=== PATIENT | male | born 1945 | race Caucasian/White ===

== ENCOUNTER 2021-01-26 19:31 | Emergency (ER) | payer OTHER, MEDICARE ==
[~2021-01-26] VITALS: Ht 177.8 cm; Wt 95.2 kg
[~2021-01-26 19:31] MED LIST: METPRE4DP PO; Norco 5-325 Ta1 EACH PO; SIMV5
[2021-01-26 20:42] LABS: BASOPHILS ABSOLUTE AUTO 0.09 K/mm3 (0.00-0.23); BASOPHILS PERCENT AUTO 1 % (0-2); EOSINOPHILS ABSOLUTE AUTO 0.47 K/mm3 (0.00-0.68); EOSINOPHILS PERCENT AUTO 6 % (0-6); Hematocrit 43.8 % (37.0-53.0); Hemoglobin 14.5 g/dL (13.5-17.5); IMMATURE GRAN ABSOLUTE AUTO 0.03 K/mm3 (0.00-0.10); IMMATURE GRAN PERCENT AUTO 0 % (0-1); LYMPHOCYTES ABSOLUTE AUTO 2.04 K/mm3 (0.84-5.20); LYMPHOCYTES PERCENT AUTO 24 % (21-46); MONOCYTES ABSOLUTE AUTO 0.95 K/mm3 (0.16-1.47); MONOCYTES PERCENT AUTO 11 % (4-13); Mean Corpuscular HGB 30.3 pg (26.0-34.0); Mean Corpuscular HGB Conc 33.1 g/dL (31.5-36.5); Mean Corpuscular Volume 91 fL (80-100); NEUTROPHILS ABSOLUTE AUTO 4.82 K/mm3 (1.96-9.15); NEUTROPHILS PERCENT AUTO 57 % (41-73); Platelet Count 251 K/mm3 (150-400); RDW Coefficient Variation 12.8 % (11.7-14.2); RDW Standard Deviation 42.5 fL (35.1-46.3); Red Blood Cell Count 4.79 M/mm3 (4.30-5.90)
[2021-01-26 21:02] LABS: Alanine Aminotransfer (ALT/SGP 22 U/L (12-78); Albumin, Blood 3.4 g/dL (3.4-5.0); Albumin/Globulin Ratio 0.8 (0.8-1.8); Alk Phos 74 U/L (50-136); Anion Gap 5 mmol/L (6-16); Aspartate Aminotrans (AST/SGOT 15 U/L (12-37); Bilirubin, Total 0.5 mg/dL (0.1-1.0); Blood Urea Nitrogen 19 mg/dL (8-24); Bun/Creatinine Ratio 16.4 (12.0-20.0); CO2, Blood 28 mmol/L (21-32); Calcium, Blood 9.5 mg/dL (8.5-10.1); Chloride, Blood 107 mmol/L (98-108); Creatinine, Blood 1.16 mg/dL (0.60-1.20); Globulin, Blood 4.2 g/dL (2.2-4.0); Glomerular Filtration Rate >60 (60-); Glucose, Blood 110 mg/dL (70-99); Sodium, Blood 140 mmol/L (136-145); Total Protein, Blood 7.6 g/dL (6.4-8.2); Troponin I <0.015 ng/mL (0.000-0.040)
[2021-01-26] MEDS ORDERED: Prinivil10 MG PO (22:56)
[2021-01-26] MEDS ORDERED: DONEPEZIL HCL10 MG PO (22:57)
[2021-01-26] MEDS ORDERED: CEPH500 PO (22:57)
[2021-01-26] MEDS ORDERED: MEMANTINE PO (22:58)
[2021-01-26] MEDS ORDERED: CYAN500 PO (22:59)
[2021-01-26] MEDS ORDERED: FLAX PO (23:00)
[2021-01-26 23:52] LABS: Source, Urine Clean Catch
[2021-01-26 23:53] LABS: Bilirubin, Urine Neg (Neg); Blood, Urine 1+ (Neg); Glucose Qualitative, Urine Neg (Neg); Ketones, Urine Neg (Neg); Leukocyte Esterase, Urine Neg (Neg); Nitrite, Urine Neg (Neg); Protein, Urine Neg (Neg); Specific Gravity, Urine 1.025 (1.003-1.022); Urobilinogen, Urine NORM (Normal)
[2021-01-27 00:03] LABS: Appearance, Urine Clear (Clear); Color, Urine Yellow (P-Yellow)
[2021-01-27 00:04] LABS: Bacteria Not Seen /hpf; Mucus Light (0-Heavy); Red Blood Cells, Urine 0-2 /hpf (0-2); Squamous Epithelial Cells Not Seen /hpf (Few); White Blood Cells, Urine Not Seen /hpf (0-5)
== END 2021-01-27 00:12 | disposition home or self-care (01) ==
LOC: ER 19:31
PROVIDERS: Emergency Medicine; Physician Assistant
DX: K63.89 Other specified diseases of intestine (principal); Z79.899 Other long term (current) drug therapy
CPT/HCPCS: 36415; 71045; 74176; 80053; 81001; 83690; 84484; 85025; 93005; 93010; 96374; 99284-25; J1885

== ENCOUNTER → 2021-03-11 | Outpatient (CLI) | payer MEDICARE ==
[~2021-03-11] MED LIST changes: +CEPH500 PO; +CYAN500 PO; +DONEPEZIL HCL10 MG PO; +FLAX PO; +MEMANTINE PO; +Prinivil10 MG PO
[2021-03-11 20:18] LABS: Free Thyroxine 0.99 ng/dL (0.70-1.60); Thyroid Stimulating Hormone 1.53 uIU/mL (0.360-4.800)
== END | disposition home or self-care (01) ==
LOC: LAB 15:35 → LAB SHORT 15:35
PROVIDERS: Hospitalist
DX: R41.3 Other amnesia (principal)
CPT/HCPCS: 84439; 84443; 85651; 86592

== ENCOUNTER → 2022-12-18 | Outpatient (CLI) | payer MEDICARE ==
[2022-12-18 18:46] LABS: BASOPHILS ABSOLUTE AUTO 0.09 K/mm3 (0.00-0.23); BASOPHILS PERCENT AUTO 1 % (0-2); EOSINOPHILS ABSOLUTE AUTO 0.37 K/mm3 (0.00-0.68); EOSINOPHILS PERCENT AUTO 4 % (0-6); Hematocrit 42.3 % (37.0-53.0); Hemoglobin 14.3 g/dL (13.5-17.5); IMMATURE GRAN ABSOLUTE AUTO 0.03 K/mm3 (0.00-0.10); IMMATURE GRAN PERCENT AUTO 0 % (0-1); LYMPHOCYTES ABSOLUTE AUTO 1.78 K/mm3 (0.84-5.20); LYMPHOCYTES PERCENT AUTO 20 % (21-46); MONOCYTES PERCENT AUTO 9 % (4-13); Mean Corpuscular HGB 30.6 pg (26.0-34.0); Mean Corpuscular HGB Conc 33.8 g/dL (31.5-36.5); Mean Corpuscular Volume 90 fL (80-100); Mean Platelet Volume 11.5 fL (9.1-12.4); NEUTROPHILS ABSOLUTE AUTO 5.84 K/mm3 (1.96-9.15); NEUTROPHILS PERCENT AUTO 66 % (41-73); Platelet Count 261 K/mm3 (150-400); RDW Coefficient Variation 13.3 % (11.7-14.2); RDW Standard Deviation 43.9 fL (35.1-46.3); Red Blood Cell Count 4.68 M/mm3 (4.30-5.90); White Blood Cell Count 8.91 K/mm3 (4.00-11.30)
[2022-12-19 10:03] LABS: Alanine Aminotransfer (ALT/SGP 34 U/L (12-78); Albumin, Blood 3.4 g/dL (3.4-5.0); Alk Phos 66 U/L (50-136); Anion Gap 5 mmol/L (6-16); Aspartate Aminotrans (AST/SGOT 21 U/L (12-37); Bilirubin, Total 0.6 mg/dL (0.1-1.0); Blood Urea Nitrogen 17 mg/dL (8-24); Bun/Creatinine Ratio 14.4 (12.0-20.0); CHOL/HDL RATIO 3.2; CO2, Blood 25 mmol/L (21-32); Calcium, Blood 9.1 mg/dL (8.5-10.1); Chloride, Blood 112 mmol/L (98-108); Cholesterol 210 mg/dL (50-200); Creatinine, Blood 1.18 mg/dL (0.60-1.20); Globulin, Blood 3.4 g/dL (2.2-4.0); Glomerular Filtration Rate 64 (60-); Glucose, Blood 114 mg/dL (70-99); HDL Cholesterol 65 mg/dL (>39); Low Density Lipoprotein Chol 130 mg/dL (0-110); Potassium, Blood 4.2 mmol/L (3.5-5.5); Sodium, Blood 142 mmol/L (136-145); Total Protein, Blood 6.8 g/dL (6.4-8.2); Triglycerides 77 mg/dL (30-160); Very Low Density Lipoprot Chol 15 mg/dL (6-32)
== END | disposition home or self-care (01) ==
LOC: LAB 17:37 → LAB SHORT 17:37
PROVIDERS: Hospitalist
DX: I10 Essential (primary) hypertension (principal); E78.5 Hyperlipidemia, unspecified
CPT/HCPCS: 80053; 80061; 84443; 85025

== ENCOUNTER 2024-06-17 14:36 | Emergency (ER) | payer OTHER ==
[~2024-06-17] VITALS: Ht 177.8 cm; Wt 90.7 kg
[2024-06-17] MEDS ORDERED: Amlodipine Bes2.5 MG (15:30)
[2024-06-17 15:36] LABS: BASOPHILS ABSOLUTE AUTO 0.09 K/mm3 (0.00-0.23); BASOPHILS PERCENT AUTO 1 % (0-2); EOSINOPHILS PERCENT AUTO 4 % (0-6); Hematocrit 40.1 % (37.0-53.0); Hemoglobin 13.1 g/dL (13.5-17.5); IMMATURE GRAN ABSOLUTE AUTO 0.03 K/mm3 (0.00-0.10); IMMATURE GRAN PERCENT AUTO 0 % (0-1); LYMPHOCYTES ABSOLUTE AUTO 1.52 K/mm3 (0.84-5.20); LYMPHOCYTES PERCENT AUTO 20 % (21-46); MONOCYTES ABSOLUTE AUTO 0.63 K/mm3 (0.16-1.47); MONOCYTES PERCENT AUTO 8 % (4-13); Mean Corpuscular HGB 30.6 pg (26.0-34.0); Mean Corpuscular HGB Conc 32.7 g/dL (31.5-36.5); Mean Corpuscular Volume 94 fL (80-100); Mean Platelet Volume 11.2 fL (9.1-12.4); NEUTROPHILS ABSOLUTE AUTO 4.97 K/mm3 (1.96-9.15); NEUTROPHILS PERCENT AUTO 66 % (41-73); Platelet Count 295 K/mm3 (150-400); RDW Coefficient Variation 13.4 % (11.7-14.2); RDW Standard Deviation 45.2 fL (35.1-46.3); Red Blood Cell Count 4.28 M/mm3 (4.30-5.90); White Blood Cell Count 7.54 K/mm3 (4.00-11.30)
[2024-06-17 16:59] LABS: Albumin, Blood 2.7 g/dL (3.4-5.0); Albumin/Globulin Ratio 0.6 (0.8-1.8); Bilirubin, Total 0.8 mg/dL (0.1-1.0); Bun/Creatinine Ratio 17.8 (12.0-20.0); Calcium, Blood 9.1 mg/dL (8.5-10.1); Creatinine, Blood 1.07 mg/dL (0.60-1.20); Globulin, Blood 4.5 g/dL (2.2-4.0); Magnesium, Blood 2.1 mg/dL (1.6-2.4); Potassium, Blood 4.6 mmol/L (3.5-5.5); Total Protein, Blood 7.2 g/dL (6.4-8.2)
[2024-06-17] MEDS ORDERED: IRBE75 (18:06)
[2024-06-17] MEDS ORDERED: FURO20 (18:06)
[2024-06-17 19:04] LABS: Source, Urine Clean Catch
[2024-06-17 19:10] LABS: Appearance, Urine Clear (Clear); Bilirubin, Urine Neg (Neg); Blood, Urine Neg (Neg); Color, Urine Yellow (P-Yellow); Glucose Qualitative, Urine Neg (Neg); Ketones, Urine Neg (Neg); Leukocyte Esterase, Urine 1+ (Neg); Nitrite, Urine Neg (Neg); Protein, Urine Neg (Neg); Specific Gravity, Urine 1.025 (1.003-1.022); Urobilinogen, Urine NORM (Normal)
[2024-06-17 19:19] LABS: Bacteria Few /hpf; Red Blood Cells, Urine Not Seen /hpf (0-2); Squamous Epithelial Cells Not Seen /hpf (Few)
[2024-06-17 20:15] VITALS: BP 123/60
== END 2024-06-17 20:27 | disposition home or self-care (01) ==
LOC: ER 14:36
PROVIDERS: Student in an Organized Health Care Education/Training Program
DX: R55 Syncope and collapse (principal); Z79.899 Other long term (current) drug therapy
CPT/HCPCS: 70450; 71046; 80053; 81001; 83735; 83880; 84484; 85025; 87086; 93005; 93010; 99285-25

== ENCOUNTER 2024-10-07 16:31 | Observation (INO) | payer OTHER, MEDICARE ==
[~2024-10-07] VITALS: Ht 177.8 cm; Wt 101.2 kg
[~2024-10-07 16:31] MED LIST changes: +Amlodipine Bes2.5 MG; +Enoxaparin 40 MG/0.4 ML SYR SC SCH; +FURO20; +IRBE75
[2024-10-07 19:32] LABS: BASOPHILS ABSOLUTE AUTO 0.09 K/mm3 (0.00-0.23); BASOPHILS PERCENT AUTO 1 % (0-2); EOSINOPHILS ABSOLUTE AUTO 0.55 K/mm3 (0.00-0.68); EOSINOPHILS PERCENT AUTO 6 % (0-6); Hematocrit 43.6 % (37.0-53.0); Hemoglobin 13.8 g/dL (13.5-17.5); IMMATURE GRAN ABSOLUTE AUTO 0.05 K/mm3 (0.00-0.10); IMMATURE GRAN PERCENT AUTO 1 % (0-1); LYMPHOCYTES ABSOLUTE AUTO 1.68 K/mm3 (0.84-5.20); LYMPHOCYTES PERCENT AUTO 17 % (21-46); MONOCYTES ABSOLUTE AUTO 0.74 K/mm3 (0.16-1.47); MONOCYTES PERCENT AUTO 8 % (4-13); Mean Corpuscular HGB 30.8 pg (26.0-34.0); Mean Corpuscular HGB Conc 31.7 g/dL (31.5-36.5); Mean Corpuscular Volume 97 fL (80-100); Mean Platelet Volume 11.6 fL (9.1-12.4); NEUTROPHILS ABSOLUTE AUTO 6.73 K/mm3 (1.96-9.15); NEUTROPHILS PERCENT AUTO 68 % (41-73); Platelet Count 248 K/mm3 (150-400); RDW Coefficient Variation 13.3 % (11.7-14.2); RDW Standard Deviation 47.8 fL (35.1-46.3); Red Blood Cell Count 4.48 M/mm3 (4.30-5.90); White Blood Cell Count 9.84 K/mm3 (4.00-11.30)
[2024-10-07 20:53] LABS: Albumin, Blood 2.8 g/dL (3.4-5.0); Albumin/Globulin Ratio 0.7 (0.8-1.8); Bilirubin, Total 0.4 mg/dL (0.1-1.0); Bun/Creatinine Ratio 18.5 (12.0-20.0); Calcium, Blood 9.3 mg/dL (8.5-10.1); Creatinine, Blood 1.35 mg/dL (0.60-1.20); Globulin, Blood 4.1 g/dL (2.2-4.0); Potassium, Blood 4.2 mmol/L (3.5-5.5); Total Protein, Blood 6.9 g/dL (6.4-8.2)
[2024-10-07] MEDS ORDERED: NS 1,000 ML IV SCH (21:00)
[2024-10-07] MEDS ORDERED: Ondansetron HCl 2 MG / ML 2ML Vial IV PRN (23:40)
[2024-10-07] MEDS ORDERED: FLU VACC TS2024-25(6MOS UP)/PF 45 MCG/0.5 ML SYRINGE IM ONE (23:40)
[2024-10-07] MEDS ORDERED: NS 1,000 ML IV ONE (23:45)
[2024-10-08] VITALS (7 sets, daily range): BP systolic 137–166; BP diastolic 64–102
[2024-10-08 04:53] LABS: BASOPHILS ABSOLUTE AUTO 0.09 K/mm3 (0.00-0.23); BASOPHILS PERCENT AUTO 1 % (0-2); EOSINOPHILS ABSOLUTE AUTO 0.72 K/mm3 (0.00-0.68); EOSINOPHILS PERCENT AUTO 7 % (0-6); Hematocrit 37.8 % (37.0-53.0); Hemoglobin 12.2 g/dL (13.5-17.5); IMMATURE GRAN ABSOLUTE AUTO 0.03 K/mm3 (0.00-0.10); IMMATURE GRAN PERCENT AUTO 0 % (0-1); LYMPHOCYTES ABSOLUTE AUTO 2.36 K/mm3 (0.84-5.20); LYMPHOCYTES PERCENT AUTO 24 % (21-46); MONOCYTES ABSOLUTE AUTO 1.08 K/mm3 (0.16-1.47); MONOCYTES PERCENT AUTO 11 % (4-13); Mean Corpuscular HGB 30.6 pg (26.0-34.0); Mean Corpuscular HGB Conc 32.3 g/dL (31.5-36.5); Mean Corpuscular Volume 95 fL (80-100); Mean Platelet Volume 11.4 fL (9.1-12.4); NEUTROPHILS ABSOLUTE AUTO 5.52 K/mm3 (1.96-9.15); NEUTROPHILS PERCENT AUTO 56 % (41-73); Platelet Count 220 K/mm3 (150-400); RDW Coefficient Variation 13.2 % (11.7-14.2); RDW Standard Deviation 46.5 fL (35.1-46.3); Red Blood Cell Count 3.99 M/mm3 (4.30-5.90)
[2024-10-08 05:22] LABS: Albumin, Blood 2.6 g/dL (3.4-5.0); Albumin/Globulin Ratio 0.7 (0.8-1.8); Bilirubin, Total 0.4 mg/dL (0.1-1.0); Bun/Creatinine Ratio 23.1 (12.0-20.0); Creatinine, Blood 1.21 mg/dL (0.60-1.20); Globulin, Blood 3.8 g/dL (2.2-4.0); Potassium, Blood 3.9 mmol/L (3.5-5.5); Total Protein, Blood 6.4 g/dL (6.4-8.2)
[2024-10-08] MEDS ORDERED: AmLODIPine Besylate 5 MG Tab PO SCH (08:30)
[2024-10-08] MEDS ORDERED: Losartan Potassium 50 MG Tab PO SCH (10:00)
[2024-10-09 03:50] VITALS: BP 160/69
[2024-10-09 04:29] LABS: BASOPHILS ABSOLUTE AUTO 0.12 K/mm3 (0.00-0.23); BASOPHILS PERCENT AUTO 1 % (0-2); EOSINOPHILS ABSOLUTE AUTO 0.94 K/mm3 (0.00-0.68); EOSINOPHILS PERCENT AUTO 11 % (0-6); Hematocrit 36.4 % (37.0-53.0); Hemoglobin 11.9 g/dL (13.5-17.5); IMMATURE GRAN ABSOLUTE AUTO 0.03 K/mm3 (0.00-0.10); IMMATURE GRAN PERCENT AUTO 0 % (0-1); LYMPHOCYTES ABSOLUTE AUTO 2.32 K/mm3 (0.84-5.20); LYMPHOCYTES PERCENT AUTO 27 % (21-46); MONOCYTES ABSOLUTE AUTO 0.93 K/mm3 (0.16-1.47); MONOCYTES PERCENT AUTO 11 % (4-13); Mean Corpuscular HGB 31.1 pg (26.0-34.0); Mean Corpuscular HGB Conc 32.7 g/dL (31.5-36.5); Mean Corpuscular Volume 95 fL (80-100); Mean Platelet Volume 11.3 fL (9.1-12.4); NEUTROPHILS ABSOLUTE AUTO 4.35 K/mm3 (1.96-9.15); NEUTROPHILS PERCENT AUTO 50 % (41-73); Platelet Count 220 K/mm3 (150-400); RDW Coefficient Variation 13.2 % (11.7-14.2); RDW Standard Deviation 46.1 fL (35.1-46.3); Red Blood Cell Count 3.83 M/mm3 (4.30-5.90); White Blood Cell Count 8.69 K/mm3 (4.00-11.30)
[2024-10-09 05:09] LABS: Albumin, Blood 2.7 g/dL (3.4-5.0); Albumin/Globulin Ratio 0.8 (0.8-1.8); Bilirubin, Total 0.7 mg/dL (0.1-1.0); Bun/Creatinine Ratio 16.3 (12.0-20.0); Calcium, Blood 8.9 mg/dL (8.5-10.1); Creatinine, Blood 1.23 mg/dL (0.60-1.20); Globulin, Blood 3.6 g/dL (2.2-4.0); Total Protein, Blood 6.3 g/dL (6.4-8.2)
[2024-10-09 07:33] VITALS: BP 173/91
[2024-10-09] MEDS ORDERED: Lactated Ringer's 1,000 ML IV ONE (10:00)
[2024-10-09 12:25] VITALS: BP 142/76
[2024-10-09 19:35] VITALS: BP 132/63
[2024-10-09] MEDS ORDERED: Miconazole Nitrate 2% 85 GM PWD TOP SCH (21:00)
[2024-10-10 04:45] VITALS: BP 177/93
[2024-10-10 07:52] VITALS: BP 179/90
[2024-10-10 07:53] VITALS: BP 165/92
[2024-10-10] MEDS ORDERED: IRBE150 PO (13:33)
[2024-10-10 15:12] VITALS: BP 158/80
[2024-10-10 19:37] VITALS: BP 134/68
[2024-10-11 04:54] VITALS: BP 166/85
[2024-10-11 07:06] VITALS: BP 164/96
== END 2024-10-11 14:38 ==
LOC: ER 16:31 → SURS 16:32 → ERHOLD 16:32 → SURS 23:38
PROVIDERS: Family Medicine; Student in an Organized Health Care Education/Training Program; ADMIT Internal Medicine
DX: R55 Syncope and collapse (principal); D64.9 Anemia, unspecified; G20.A1 Parkinson's disease without dyskinesia, without mention of fluctuations; F02.80 Dementia in other diseases classified elsewhere, unspecified severity, without behavioral disturbance, psychotic disturbance, mood disturbance, and anxiety; F01.50 Vascular dementia, unspecified severity, without behavioral disturbance, psychotic disturbance, mood disturbance, and anxiety; E88.09 Other disorders of plasma-protein metabolism, not elsewhere classified; N17.9 Acute kidney failure, unspecified; N18.2 Chronic kidney disease, stage 2 (mild); Z79.899 Other long term (current) drug therapy
CPT/HCPCS: 36415; 80053; 83880; 84484; 85025; 93005; 93010; 93246; 93306; 96360-59; 96372; 96372-59; 97110; 97163; 97530; 99285-25; A9270; G0378; J1650; J7030; J7120

== ENCOUNTER 2024-12-18 12:44 | Emergency (ER) | payer OTHER, MEDICARE ==
[~2024-12-18] VITALS: Ht 177.8 cm; Wt 104.3 kg
[~2024-12-18 12:44] MED LIST changes: -Enoxaparin 40 MG/0.4 ML SYR SC SCH; +IRBE150 PO
[2024-12-18] MEDS ORDERED: SERT50 (14:19)
[2024-12-18 14:41] LABS: BASOPHILS PERCENT AUTO 1 % (0-2); EOSINOPHILS ABSOLUTE AUTO 0.27 K/mm3 (0.00-0.68); EOSINOPHILS PERCENT AUTO 4 % (0-6); Hematocrit 43.7 % (37.0-53.0); Hemoglobin 14.2 g/dL (13.5-17.5); IMMATURE GRAN ABSOLUTE AUTO 0.03 K/mm3 (0.00-0.10); IMMATURE GRAN PERCENT AUTO 0 % (0-1); LYMPHOCYTES ABSOLUTE AUTO 1.12 K/mm3 (0.84-5.20); LYMPHOCYTES PERCENT AUTO 15 % (21-46); MONOCYTES ABSOLUTE AUTO 0.62 K/mm3 (0.16-1.47); MONOCYTES PERCENT AUTO 8 % (4-13); Mean Corpuscular HGB 30.7 pg (26.0-34.0); Mean Corpuscular HGB Conc 32.5 g/dL (31.5-36.5); Mean Corpuscular Volume 94 fL (80-100); Mean Platelet Volume 11.4 fL (9.1-12.4); NEUTROPHILS ABSOLUTE AUTO 5.27 K/mm3 (1.96-9.15); NEUTROPHILS PERCENT AUTO 71 % (41-73); Platelet Count 202 K/mm3 (150-400); RDW Coefficient Variation 13.1 % (11.7-14.2); RDW Standard Deviation 44.7 fL (35.1-46.3); Red Blood Cell Count 4.63 M/mm3 (4.30-5.90); White Blood Cell Count 7.41 K/mm3 (4.00-11.30)
[2024-12-18 15:18] LABS: Albumin, Blood 3.4 g/dL (3.4-5.0); Albumin/Globulin Ratio 0.9 (0.8-1.8); Bilirubin, Total 0.8 mg/dL (0.1-1.0); Bun/Creatinine Ratio 16.4 (12.0-20.0); Calcium, Blood 8.9 mg/dL (8.5-10.1); Creatinine, Blood 1.28 mg/dL (0.60-1.20); Globulin, Blood 3.7 g/dL (2.2-4.0); Potassium, Blood 4.2 mmol/L (3.5-5.5); Total Protein, Blood 7.1 g/dL (6.4-8.2)
[2024-12-18 16:15] VITALS: BP 118/66
== END 2024-12-18 16:31 | disposition home or self-care (01) ==
LOC: ER 12:44
PROVIDERS: Emergency Medicine
DX: R55 Syncope and collapse (principal); N18.9 Chronic kidney disease, unspecified; Z87.898 Personal history of other specified conditions; F01.50 Vascular dementia, unspecified severity, without behavioral disturbance, psychotic disturbance, mood disturbance, and anxiety; Z79.899 Other long term (current) drug therapy; Z79.811 Long term (current) use of aromatase inhibitors
CPT/HCPCS: 71045; 80053; 84484; 85025; 93005; 93010; 99284-25

== ENCOUNTER 2025-09-20 18:58 | Inpatient (IN) | payer OTHER, MEDICARE ==
[~2025-09-20] VITALS: Ht 177.8 cm; Wt 94.6 kg
[~2025-09-20 18:58] MED LIST changes: +SERT50
[2025-09-20] MEDS ORDERED: Ondansetron 4 MG SoluTab SL ONE (21:25)
[2025-09-20] MEDS ORDERED: HYDROcodone 5-APAP 325 TAB PO ONE (22:30)
[2025-09-20 23:15] LABS: BASOPHILS ABSOLUTE AUTO 0.07 K/mm3 (0.00-0.23); BASOPHILS PERCENT AUTO 0 % (0-2); EOSINOPHILS ABSOLUTE AUTO 0.00 K/mm3 (0.00-0.68); EOSINOPHILS PERCENT AUTO 0 % (0-6); Hematocrit 43.4 % (37.0-53.0); Hemoglobin 13.7 g/dL (13.5-17.5); IMMATURE GRAN ABSOLUTE AUTO 0.05 K/mm3 (0.00-0.10); IMMATURE GRAN PERCENT AUTO 0 % (0-1); LYMPHOCYTES ABSOLUTE AUTO 0.36 K/mm3 (0.84-5.20); LYMPHOCYTES PERCENT AUTO 2 % (21-46); MONOCYTES ABSOLUTE AUTO 0.34 K/mm3 (0.16-1.47); MONOCYTES PERCENT AUTO 2 % (4-13); Mean Corpuscular HGB Conc 31.6 g/dL (31.5-36.5); Mean Corpuscular Volume 94 fL (80-100); NEUTROPHILS ABSOLUTE AUTO 17.47 K/mm3 (1.96-9.15); NEUTROPHILS PERCENT AUTO 95 % (41-73); NRBC ABSOLUTE 0.00 K/mm3 (0.00-0.02); NRBC Auto 0.0 /100 WBC (0.0-0.2); Platelet Count 231 K/mm3 (150-400); RDW Coefficient Variation 13.5 % (11.7-14.2); RDW Standard Deviation 46.5 fL (35.1-46.3)
[2025-09-20 23:34] LABS: Alanine Aminotransfer (ALT/SGP 18.0 U/L (12-78); Albumin, Blood 2.9 g/dL (3.4-5.0); Albumin/Globulin Ratio 0.7 (0.8-1.8); Anion Gap 11.0 mmol/L (3-11); Aspartate Aminotrans (AST/SGOT 16.0 U/L (12-37); Bilirubin, Total 0.7 mg/dL (0.1-1.0); Blood Urea Nitrogen 25.0 mg/dL (8-24); CO2, Blood 24.0 mmol/L (21-32); Calcium, Blood 9.0 mg/dL (8.5-10.1); Chloride, Blood 111.0 mmol/L (98-108); Creatinine, Blood 1.26 mg/dL (0.60-1.20); Globulin, Blood 3.9 g/dL (2.2-4.0); Glucose, Blood 109.0 mg/dL (70-99); Potassium, Blood 4.0 mmol/L (3.5-5.5); Sodium, Blood 142.0 mmol/L (136-145); Total Protein, Blood 6.8 g/dL (6.4-8.2)
[2025-09-21] MEDS ORDERED: NS 1,000 ML IV SCH ×2 (02:25→02:50)
[2025-09-21] MEDS ORDERED: CefTRIAXone Sodium 1,000 MG in NS 100 ML IV ONE ×2 (02:45→08:15)
[2025-09-21] MEDS ORDERED: FLU VACC TS2025(65UP)/MF59C/PF 45 MCG/0.5 ML SYRINGE IM SCH (02:50)
[2025-09-21] MEDS ORDERED: Ondansetron HCl 2 MG / ML 2ML Vial IV PRN (02:50)
[2025-09-21 03:36] LABS: Influenza A, PCR NEGATIVE (NEGATIVE); Influenza B, PCR NEGATIVE (NEGATIVE); Resp Syncytial Virus, PCR NEGATIVE (NEGATIVE); SARS-Cov-2 (COVID-19) PCR, MMC NEGATIVE (NEGATIVE)
[2025-09-21 04:27] VITALS: BP 95/54
--- NOTE | 2025-09-21 05:30 | NUR ---
ADMIT FOR 09/21 410 AND SHIFT SUMMARY REPORT WAS RECEIVED FROM THE ER. PT WAS BROUGHT DOWN ON THE GURNEY WITH HIS AND TRANSFERRED OVER TO THE BED. PT ALERT WITH CONFUSION TRIES TO ANSWER QUESTIIONS TO HIS NAME AND SPOUSES NAME BUT VERY HARD TO UNDERSTAND. HE HAS A COCCYX WOUND, DRESSING APPLIED TO AREA AND BILAT HEELS ARE RED DRESSINGS AND BOOTIES APPLIED. HE HAS A PALLIATIVE CARE CONSULT. REMAINS ON NS AT 100. HE HAS A HX OF DEMENTIA AND PTS STATED THAT THIS IS HIS BASELINE X 2 MONTHS. HES UNABLE TO WALK HAS A CAREGIVER AT HOME WHO GETS HIM UP WITH A LIFT TO A W/C. SHE STATED THAT HES A FEEDER MOST OF THE TIME. HIS LACTIC WAS 2.6 AND WAS CALLED TO MD. BED IN LOW POSITION CALL LIGHT IN REACH
[2025-09-21 05:46] LABS: Source, Urine Foley catheter
[2025-09-21 05:52] LABS: Bilirubin, Urine Neg (Neg); Color, Urine Yellow (P-Yellow); Glucose Qualitative, Urine Neg (Neg); Ketones, Urine Neg (Neg); Leukocyte Esterase, Urine 3+ (Neg); Protein, Urine 2+ (Neg); Specific Gravity, Urine 1.020 (1.003-1.022); Urobilinogen, Urine 1+ (Normal)
[2025-09-21 06:10] LABS: White Blood Cells, Urine 25-50 /hpf (0-5)
[2025-09-21 06:59] LABS: Alanine Aminotransfer (ALT/SGP 16.0 U/L (12-78); Albumin, Blood 2.2 g/dL (3.4-5.0); Albumin/Globulin Ratio 0.6 (0.8-1.8); Anion Gap 11.0 mmol/L (3-11); Aspartate Aminotrans (AST/SGOT 17.0 U/L (12-37); Bilirubin, Total 0.6 mg/dL (0.1-1.0); Blood Urea Nitrogen 27.0 mg/dL (8-24); CO2, Blood 21.0 mmol/L (21-32); Calcium, Blood 8.4 mg/dL (8.5-10.1); Chloride, Blood 113.0 mmol/L (98-108); Creatinine, Blood 1.57 mg/dL (0.60-1.20); Globulin, Blood 3.5 g/dL (2.2-4.0); Glucose, Blood 119.0 mg/dL (70-99); Potassium, Blood 4.8 mmol/L (3.5-5.5); Sodium, Blood 140.0 mmol/L (136-145); Total Protein, Blood 5.7 g/dL (6.4-8.2)
[2025-09-21 07:45] VITALS: BP 117/54
[2025-09-21 08:03] LABS: BASOPHILS ABSOLUTE AUTO 0.11 K/mm3 (0.00-0.23); BASOPHILS PERCENT AUTO 0 % (0-2); EOSINOPHILS ABSOLUTE AUTO 0.00 K/mm3 (0.00-0.68); EOSINOPHILS PERCENT AUTO 0 % (0-6); Hematocrit 39.4 % (37.0-53.0); Hemoglobin 12.7 g/dL (13.5-17.5); IMMATURE GRAN ABSOLUTE AUTO 0.33 K/mm3 (0.00-0.10); IMMATURE GRAN PERCENT AUTO 1 % (0-1); LYMPHOCYTES ABSOLUTE AUTO 1.29 K/mm3 (0.84-5.20); LYMPHOCYTES PERCENT AUTO 4 % (21-46); MONOCYTES ABSOLUTE AUTO 1.34 K/mm3 (0.16-1.47); MONOCYTES PERCENT AUTO 4 % (4-13); Mean Corpuscular HGB Conc 32.2 g/dL (31.5-36.5); Mean Corpuscular Volume 96 fL (80-100); NEUTROPHILS ABSOLUTE AUTO 30.80 K/mm3 (1.96-9.15); NEUTROPHILS PERCENT AUTO 91 % (41-73); NRBC ABSOLUTE 0.00 K/mm3 (0.00-0.02); NRBC Auto 0.0 /100 WBC (0.0-0.2); Platelet Count 221 K/mm3 (150-400); RDW Coefficient Variation 13.6 % (11.7-14.2); RDW Standard Deviation 48.0 fL (35.1-46.3)
[2025-09-21] MEDS ORDERED: NS 1,000 ML IV ONE (09:00)
--- NOTE | 2025-09-21 09:13 | NUR ---
AM NOTE this rn assumed care at 0700. vital signs stable. tele sinus rhythm 70s. spop2 >90% on room air, patient is alert, but is not able to communicate with this rn. at bedside and states that patient baseline does not communicate and is bed bound. patient lung sounbds clear and dim in lower lobes. patient does not appear in pain. see shift assessment for further detials. stating that they do have a sit stand lift at home they use and [facility] caregivers. this rn discussed code status, palliative care, and having a visit from the plate grinder, which patient agreed too. orders for 1l bolus, and bolus started.
--- NOTE | 2025-09-21 10:12 | NUR ---
update rehan garner palliative care in the room talking with the at this time
[2025-09-21 11:39] VITALS: BP 131/61
--- NOTE | 2025-09-21 11:58 | NUR ---
DISCUSSION WITH PATIENTS SPOUSE RAND ABOUT CODE STATUS PATIENT HAS A POLST ON FILE INDICATING DNR AND LIMITED INTERVENTIONS. CODE STATUS CHANGED ACCORDINGLY. WE REVIEWED POLST AND THE SELECTIONS MADE. RAND EXPRESSED THAT FIDENCIO WOULD NOT WANT TO BE INTUBATED BUT THEY WOULD BE OK WITH A "FEW COMPRESSIONS". SHE EXPRESSED THAT SHE NEEDS TIME TO THINK ABOUT EVERYTHING BUT LEAVE THE CODE STATUS DNR FOR NOW. TOOK PATIENTS TEMP 99.0 ORDERED TYLENOL, UPDATED BSRN.
--- NOTE | 2025-09-21 13:07 | NUR ---
Upon receiving a request for spiritual care, I visited the patient. The patient and spouse, Ольга, are known to this Rubber Compounder Mixer from outside the hospitl. Ольга talks at length about the patient's recent medical history, the family recent history and the personal exhaustion that the superintendent terminal care of her has produced. We talk about end of life issues, arrangements (for later not in the immediate future) and the strength of her manuela. I encouraged self-care, reinforeced helpful attitudes and perspectives and provided therapeutic listening and gentle aids counselor. Ольга voiced her appreciation. I will continue to remain available.
[2025-09-21 14:57] VITALS: BP 114/54
--- NOTE | 2025-09-21 17:47 | NUR ---
shift summary patient vitals remain stable. at bedside and helps assist with patient care. patient wild is draining yellow to gravity. this rn updated md pearl of low urine out put and being fluid positive. this rn bladder scanned per md pearl orders, and informed of empty bladder. no new orders at this time. see previous notes. otherwise no acute changes this shift.
[2025-09-21 19:54] VITALS: BP 159/74
[2025-09-21 23:39] VITALS: BP 165/75
[2025-09-22 04:49] VITALS: BP 170/77
[2025-09-22 05:39] LABS: BASOPHILS ABSOLUTE AUTO 0.05 K/mm3 (0.00-0.23); BASOPHILS PERCENT AUTO 0 % (0-2); EOSINOPHILS ABSOLUTE AUTO 0.04 K/mm3 (0.00-0.68); EOSINOPHILS PERCENT AUTO 0 % (0-6); Hematocrit 34.6 % (37.0-53.0); Hemoglobin 11.2 g/dL (13.5-17.5); IMMATURE GRAN ABSOLUTE AUTO 0.04 K/mm3 (0.00-0.10); IMMATURE GRAN PERCENT AUTO 0 % (0-1); LYMPHOCYTES ABSOLUTE AUTO 1.01 K/mm3 (0.84-5.20); LYMPHOCYTES PERCENT AUTO 8 % (21-46); MONOCYTES ABSOLUTE AUTO 0.51 K/mm3 (0.16-1.47); MONOCYTES PERCENT AUTO 4 % (4-13); Mean Corpuscular HGB Conc 32.4 g/dL (31.5-36.5); Mean Corpuscular Volume 94 fL (80-100); NEUTROPHILS ABSOLUTE AUTO 10.88 K/mm3 (1.96-9.15); NEUTROPHILS PERCENT AUTO 87 % (41-73); NRBC ABSOLUTE 0.00 K/mm3 (0.00-0.02); NRBC Auto 0.0 /100 WBC (0.0-0.2); Platelet Count 162 K/mm3 (150-400); RDW Coefficient Variation 13.8 % (11.7-14.2); RDW Standard Deviation 47.1 fL (35.1-46.3)
[2025-09-22] MEDS ORDERED: CefTRIAXone Sodium 1,000 MG in NS 100 ML IV SCH (06:00)
[2025-09-22] MEDS ORDERED: CefTRIAXone Sodium 2,000 MG in NS 100 ML IV SCH (06:00)
[2025-09-22 06:04] LABS: Anion Gap 8.0 mmol/L (3-11); Blood Urea Nitrogen 20.0 mg/dL (8-24); CO2, Blood 25.0 mmol/L (21-32); Calcium, Blood 8.2 mg/dL (8.5-10.1); Chloride, Blood 112.0 mmol/L (98-108); Creatinine, Blood 1.15 mg/dL (0.60-1.20); Glucose, Blood 98.0 mg/dL (70-99); Magnesium, Blood 1.7 mg/dL (1.6-2.4); Potassium, Blood 3.9 mmol/L (3.5-5.5); Sodium, Blood 141.0 mmol/L (136-145)
--- NOTE | 2025-09-22 06:39 | NUR ---
SHIFT SUMMARY PATIENT ALERT WHEN AWAKE. STAYED AT BEDSIDE. PER , PATIENT NON-VERBAL X1 MONTH. PATIENT DID SPEAK TWO SEPARATE TIMES DURING SHIFT. FOLLOWS COMMANDS LIKE SQUEEZING HANDS WHEN ASKED. OCCASIONAL MOIST COUGH. LS CTA. MAX ASSIST WITH TURNS AND ADL'S. CHEATHAM DRAINING CLEAR YELLOW URINE TO GRAVITY. NO BLEEDING FROM PENIS. OVERNIGHT OXIMETRY PERFORMED BY RT AND COPY PLACED IN CHART. NO OTHER ACUTE EVENTS OVERNIGHT. PLAN OF CARE ONGOING.
[2025-09-22 07:16] VITALS: BP 175/92
--- NOTE | 2025-09-22 09:14 | NUR ---
AM NOTE this rn assumed care at 0700. vital signs stable. tele sinus rhythm 70s patient is alert. is at bedside and patient appears to know who is. patient is not speaking sentence, but said "no" when i asked if he was in pain. and when i asked if the coffee was hot patient said "very". when this rn asked more questions, but did not answer and just stared. patient does not appear to be having any cardiac or respiratory distress. see shift assessment for further detials. patient up in the chair this morning and used the lift. patient ate breakfast in the chair and was able to feed himself this morning, and yesterday the was feeding the patient. plan of care is up to date at this time.
[2025-09-22 11:13] VITALS: BP 145/74
--- NOTE | 2025-09-22 11:16 | NUR ---
update md pearl in the room at 1055 and discussed the plan of care with the patient and patient , teressa. md pearl discussed positive blood cultures and still waiting for the final results of urine cultures, and answered the wifes questions. the plan is to continue iv abx for 5-7 days, so possible discharge thursday or thursday. patient verbalized understanding. plan of care is up to date.
[2025-09-22 15:06] VITALS: BP 150/83
--- NOTE | 2025-09-22 17:11 | NUR ---
shift summary vital signs remain stable. no acute changes this shift. see previous notes. plan of care remains up to date
[2025-09-22 19:32] VITALS: BP 166/75
[2025-09-22 23:38] VITALS: BP 171/84
[2025-09-23] VITALS (9 sets, daily range): BP systolic 117–186; BP diastolic 63–96
[2025-09-23] MEDS ORDERED: HydrALAZINE HCl 20 MG / ML 1ML Vial IV ONE (00:40)
[2025-09-23 05:52] LABS: BASOPHILS ABSOLUTE AUTO 0.06 K/mm3 (0.00-0.23); BASOPHILS PERCENT AUTO 1 % (0-2); EOSINOPHILS ABSOLUTE AUTO 0.19 K/mm3 (0.00-0.68); EOSINOPHILS PERCENT AUTO 2 % (0-6); Hematocrit 36.8 % (37.0-53.0); Hemoglobin 12.2 g/dL (13.5-17.5); IMMATURE GRAN ABSOLUTE AUTO 0.05 K/mm3 (0.00-0.10); IMMATURE GRAN PERCENT AUTO 1 % (0-1); LYMPHOCYTES ABSOLUTE AUTO 1.03 K/mm3 (0.84-5.20); LYMPHOCYTES PERCENT AUTO 11 % (21-46); MONOCYTES ABSOLUTE AUTO 0.61 K/mm3 (0.16-1.47); MONOCYTES PERCENT AUTO 7 % (4-13); Mean Corpuscular HGB Conc 33.2 g/dL (31.5-36.5); Mean Corpuscular Volume 91 fL (80-100); NEUTROPHILS ABSOLUTE AUTO 7.09 K/mm3 (1.96-9.15); NEUTROPHILS PERCENT AUTO 78 % (41-73); NRBC ABSOLUTE 0.00 K/mm3 (0.00-0.02); NRBC Auto 0.0 /100 WBC (0.0-0.2); Platelet Count 162 K/mm3 (150-400); RDW Coefficient Variation 13.5 % (11.7-14.2); RDW Standard Deviation 45.3 fL (35.1-46.3)
[2025-09-23 06:29] LABS: Alanine Aminotransfer (ALT/SGP 267.0 U/L (12-78); Albumin, Blood 2.3 g/dL (3.4-5.0); Albumin/Globulin Ratio 0.6 (0.8-1.8); Anion Gap 9.0 mmol/L (3-11); Aspartate Aminotrans (AST/SGOT 297.0 U/L (12-37); Bilirubin, Total 0.7 mg/dL (0.1-1.0); Blood Urea Nitrogen 18.0 mg/dL (8-24); CO2, Blood 26.0 mmol/L (21-32); Calcium, Blood 8.8 mg/dL (8.5-10.1); Chloride, Blood 109.0 mmol/L (98-108); Creatinine, Blood 1.04 mg/dL (0.60-1.20); Globulin, Blood 4.0 g/dL (2.2-4.0); Glucose, Blood 99.0 mg/dL (70-99); Potassium, Blood 3.9 mmol/L (3.5-5.5); Sodium, Blood 140.0 mmol/L (136-145); Total Protein, Blood 6.3 g/dL (6.4-8.2)
--- NOTE | 2025-09-23 06:39 | NUR ---
SHIFT SUMMARY PATIENT ALERT. ABLE TO FOLLOW SOME SIMPLE COMMANDS. SPOKE SEVERAL TIMES, SHORT SENTENCES. SEEMED TO UNDERSTAND WHAT WAS SPOKEN TO HIM. NEW IV PLACED IN DEVON. FREQUENT TURNING AND REPOSITIONING FOR SKIN INTEGRITY. MEPILEX AND HEEL PROTECTORS IN PLACE. GOOD URINE OUTPUT FROM CHEATHAM DRAINING CLEAR YELLOW URINE. NO ACUTE EVENTS OVERNIGHT. PLAN OF CARE ONGOING.
[2025-09-23] MEDS ORDERED: Polyethylene Glycol 3350 17 gm PO SCH (09:00)
[2025-09-23] MEDS ORDERED: HydrALAZINE HCl 20 MG / ML 1ML Vial IV PRN (10:40)
--- NOTE | 2025-09-23 17:35 | NUR ---
TRANSFER REPORT GIVEN TO ROBBIE ON MEDICAL FLOOR. PT TRANSFERRED TO RM [id number] WITH BELONGINGS.
[2025-09-24 00:36] VITALS: BP 144/73
--- NOTE | 2025-09-24 04:28 | NUR ---
SHIFT SUMMARY ROCEPHIN VIA DEVON IV FOR UROSEPSIS. MENTATION IMPROVING. PER , RAND, PT HAS BASELINE PROGRESSED VASCULAR DEMENTIA. DOES OCCASIONALLY SPEAK AND SAY YES/NO APPROPRIATELY, MORE SO LATER IN THIS RN'S SHIFT WITH IMPROVED EYE CONTACT/TRACKING. HAS HAD CHRONIC CHEATHAM FOR RETENTION SINCE 07/2025 STAY AT [facility] AT THE [place]. MEPILEX IN PLACE FOR R UPPER MEDIAL BUTTOCK STG 2 PRESSURE ULCER, Q2H TURNS. HAS BEEN ABLE TO FEED SELF REGULAR DIET, THOUGH DOES REQUIRE ASSISTANCE AT TIMES. LIFT ASSIST, WHEELCHAIR AT BASELINE. HEELS FLOATED IN PINK FOAM. CALLED PROVIDER D/T CONCERN FOR SUDDEN INCREASE IN PREVIOUSLY UNREMARKABLE AST/ALT LABS. PROVIDER ADDED ON LIVER US & HEPATITIS PANEL LABS. PHARMACY DISCUSSES ~3% OCCURRENCE OF ADVERSE SIGNIFICANT ELEVATION IN LIVER ENZYMES IN VANCOMYCIN USE. PT WITHOUT ANY DISCERNABLE ABDOMINAL PAIN. AWAIT AM LABS/IMAGING TO DISCUSS FURTHER WITH PROVIDER.
[2025-09-24 04:44] VITALS: BP 183/93
[2025-09-24 05:23] LABS: BASOPHILS ABSOLUTE AUTO 0.05 K/mm3 (0.00-0.23); BASOPHILS PERCENT AUTO 1 % (0-2); EOSINOPHILS ABSOLUTE AUTO 0.44 K/mm3 (0.00-0.68); EOSINOPHILS PERCENT AUTO 6 % (0-6); Hematocrit 35.2 % (37.0-53.0); Hemoglobin 11.6 g/dL (13.5-17.5); IMMATURE GRAN ABSOLUTE AUTO 0.02 K/mm3 (0.00-0.10); IMMATURE GRAN PERCENT AUTO 0 % (0-1); LYMPHOCYTES ABSOLUTE AUTO 1.37 K/mm3 (0.84-5.20); LYMPHOCYTES PERCENT AUTO 19 % (21-46); MONOCYTES ABSOLUTE AUTO 0.80 K/mm3 (0.16-1.47); MONOCYTES PERCENT AUTO 11 % (4-13); Mean Corpuscular HGB Conc 33.0 g/dL (31.5-36.5); Mean Corpuscular Volume 92 fL (80-100); NEUTROPHILS ABSOLUTE AUTO 4.59 K/mm3 (1.96-9.15); NEUTROPHILS PERCENT AUTO 63 % (41-73); NRBC ABSOLUTE 0.00 K/mm3 (0.00-0.02); NRBC Auto 0.0 /100 WBC (0.0-0.2); Platelet Count 191 K/mm3 (150-400); RDW Coefficient Variation 13.6 % (11.7-14.2); RDW Standard Deviation 46.2 fL (35.1-46.3)
[2025-09-24 05:58] LABS: Alanine Aminotransfer (ALT/SGP 487.0 U/L (12-78); Albumin, Blood 2.4 g/dL (3.4-5.0); Albumin/Globulin Ratio 0.7 (0.8-1.8); Anion Gap 7.0 mmol/L (3-11); Aspartate Aminotrans (AST/SGOT 303.0 U/L (12-37); Bilirubin, Total 0.4 mg/dL (0.1-1.0); Blood Urea Nitrogen 14.0 mg/dL (8-24); CO2, Blood 26.0 mmol/L (21-32); Calcium, Blood 8.5 mg/dL (8.5-10.1); Chloride, Blood 109.0 mmol/L (98-108); Creatinine, Blood 1.0 mg/dL (0.60-1.20); Globulin, Blood 3.5 g/dL (2.2-4.0); Glucose, Blood 99.0 mg/dL (70-99); Potassium, Blood 3.7 mmol/L (3.5-5.5); Sodium, Blood 138.0 mmol/L (136-145); Total Protein, Blood 5.9 g/dL (6.4-8.2)
[2025-09-24] MEDS ORDERED: NS 250 ML IV PRN (06:15)
[2025-09-24 07:40] VITALS: BP 182/88
[2025-09-24 11:35] VITALS: BP 142/71
[2025-09-24] MEDS ORDERED: Magnesium Citrate 300 ML BTL PO ONE (12:05)
[2025-09-24] MEDS ORDERED: Piperacillin/Tazobactam Sod 4.5 GM in NS 100 ML IV SCH (12:30)
[2025-09-24 15:45] VITALS: BP 156/81
--- NOTE | 2025-09-24 18:41 | NUR ---
SHIFT SUMMARY PT ORIENTED TO SELF AND PERSON, MOSTLY NON VERBAL, ANSWERS YES/NO, A FEW SMALL PHRASES, ASKED "WHAT IS FOR BREAKFAST?" HEPATITIS PANEL PENDING D/T ELEVATED LIVER ENZYMS, ABDOMINAL ULTRASOUND AND CT DONE TODAY, SEE REPORT. ATTEMPTED TO HAVE PT DRINK MAGNESIUM CITRATE FOR CONSTIPATION, PT SOMNULENT THIS AFTERNOON/EVENING. FREQUENT ROUNDING AND REPOSITIONING. CALL LIGHT IN REACH.
[2025-09-24 20:22] VITALS: BP 153/69
[2025-09-25 00:21] VITALS: BP 172/87
--- NOTE | 2025-09-25 04:00 | NUR ---
SHIFT SUMMARY UTI ABX CHANGED YESTERDAY FROM ROCEPHIN TO ZOSYN GIVEN VIA DEVON IV, PENDING REPEAT LIVER FUNCTION LABS THIS AM, AND PENDING HEPATITIS PANEL RESULT. CONSTIPATION GOING ON DAY 5. PT DRINKS MIRALAX AT 0100. PT INCREASINGLY INTERACTIVE AND ALERT, WITH IMPROVED EYE TRACKING, APPROPRIATE CONVERSATION/RESPONSES. URINE SERVICES MANAGER WITH INCREASED OUTPUT IN CHEATHAM CATHETER TODAY. DOES COMPLAIN OF SOME PAIN AT URETHRAL ORIFICE. SLIGHT REDNESS NOTED. STAT-LOCK REPLACED TO R THIGH WITH LESS TENSION ON CHEATHAM. SELDOM COUGHS THIS EVENING, SLEEPING OFTEN WITH HOB AT OR >30 DEG. TELE: SB, 59 BPM, DISCONTINUED THIS SHIFT, NO NOTABLE EVENTS.
[2025-09-25 04:46] VITALS: BP 170/95
[2025-09-25 06:34] LABS: BASOPHILS ABSOLUTE AUTO 0.07 K/mm3 (0.00-0.23); BASOPHILS PERCENT AUTO 1 % (0-2); EOSINOPHILS ABSOLUTE AUTO 0.57 K/mm3 (0.00-0.68); EOSINOPHILS PERCENT AUTO 7 % (0-6); Hematocrit 35.5 % (37.0-53.0); Hemoglobin 11.7 g/dL (13.5-17.5); IMMATURE GRAN ABSOLUTE AUTO 0.03 K/mm3 (0.00-0.10); IMMATURE GRAN PERCENT AUTO 0 % (0-1); LYMPHOCYTES ABSOLUTE AUTO 1.52 K/mm3 (0.84-5.20); LYMPHOCYTES PERCENT AUTO 19 % (21-46); MONOCYTES ABSOLUTE AUTO 0.84 K/mm3 (0.16-1.47); MONOCYTES PERCENT AUTO 11 % (4-13); Mean Corpuscular HGB Conc 33.0 g/dL (31.5-36.5); Mean Corpuscular Volume 92 fL (80-100); NEUTROPHILS ABSOLUTE AUTO 4.87 K/mm3 (1.96-9.15); NEUTROPHILS PERCENT AUTO 62 % (41-73); NRBC ABSOLUTE 0.00 K/mm3 (0.00-0.02); NRBC Auto 0.0 /100 WBC (0.0-0.2); Platelet Count 213 K/mm3 (150-400); RDW Coefficient Variation 13.7 % (11.7-14.2); RDW Standard Deviation 46.4 fL (35.1-46.3)
[2025-09-25 07:12] LABS: Alanine Aminotransfer (ALT/SGP 333.0 U/L (12-78); Albumin, Blood 2.1 g/dL (3.4-5.0); Albumin/Globulin Ratio 0.6 (0.8-1.8); Anion Gap 8.0 mmol/L (3-11); Aspartate Aminotrans (AST/SGOT 114.0 U/L (12-37); Bilirubin, Total 0.5 mg/dL (0.1-1.0); Blood Urea Nitrogen 12.0 mg/dL (8-24); CO2, Blood 25.0 mmol/L (21-32); Calcium, Blood 8.5 mg/dL (8.5-10.1); Chloride, Blood 112.0 mmol/L (98-108); Creatinine, Blood 1.03 mg/dL (0.60-1.20); Globulin, Blood 3.6 g/dL (2.2-4.0); Glucose, Blood 96.0 mg/dL (70-99); Potassium, Blood 3.8 mmol/L (3.5-5.5); Sodium, Blood 141.0 mmol/L (136-145); Total Protein, Blood 5.7 g/dL (6.4-8.2)
[2025-09-25 07:51] VITALS: BP 194/79
[2025-09-25 11:30] VITALS: BP 150/80
--- NOTE | 2025-09-25 14:10 | NUR ---
, RAND, CALLED AND LEFT MESSAGE FOR NURSE THIS MORNING. CALL BACK AND LEFT VOICEMAIL FOR RAND TO RETURN CALL. [phone].
--- NOTE | 2025-09-25 15:01 | NUR ---
Spiritual care visit conducted. The patient is lying in bed and has a couple of friends bedside. We talk with the patient about old stories and the patient is fairly engaged and comes up with a surprising funny one-liner a couple of times. The patient is clearly touched by the warm and encouraging interaction. I provided positive conversation direction and I lead all of us in a short prayer around the patient's bed. The patient is tearful and grateful. I will continue to remain avaialble to the patient and family.
[2025-09-25 15:14] VITALS: BP 155/79
[2025-09-25 19:37] VITALS: BP 158/75
[2025-09-26 03:13] VITALS: BP 186/92
[2025-09-26 04:00] VITALS: BP 157/79
--- NOTE | 2025-09-26 05:26 | NUR ---
SHIFT SUMMARY: PT AOX 1-[address] PT PLEASANT AND COOPERATIVE IN CARE THOUGH VERY CONFUSED. SOFT SPOKEN SHORT RESPONSES. PT SLEPT THROUGH MOST OF THE NIGHT AND TOLERATED MEDICATIONS WELL. PT VERY INVOLVED IN CARE AND PLAN. NO ACUTE OVERNIGHT EVENTS. PT IN BED RESTING, BED IN LOWEST POSITION, CALL LIGHT IN REACH. CONTINUING CARE.
[2025-09-26 05:54] LABS: BASOPHILS ABSOLUTE AUTO 0.10 K/mm3 (0.00-0.23); BASOPHILS PERCENT AUTO 1 % (0-2); EOSINOPHILS ABSOLUTE AUTO 0.83 K/mm3 (0.00-0.68); EOSINOPHILS PERCENT AUTO 10 % (0-6); Hematocrit 36.7 % (37.0-53.0); Hemoglobin 12.1 g/dL (13.5-17.5); IMMATURE GRAN ABSOLUTE AUTO 0.04 K/mm3 (0.00-0.10); IMMATURE GRAN PERCENT AUTO 1 % (0-1); LYMPHOCYTES ABSOLUTE AUTO 1.93 K/mm3 (0.84-5.20); LYMPHOCYTES PERCENT AUTO 24 % (21-46); MONOCYTES ABSOLUTE AUTO 0.88 K/mm3 (0.16-1.47); MONOCYTES PERCENT AUTO 11 % (4-13); Mean Corpuscular HGB Conc 33.0 g/dL (31.5-36.5); Mean Corpuscular Volume 91 fL (80-100); NEUTROPHILS ABSOLUTE AUTO 4.21 K/mm3 (1.96-9.15); NEUTROPHILS PERCENT AUTO 53 % (41-73); NRBC ABSOLUTE 0.00 K/mm3 (0.00-0.02); NRBC Auto 0.0 /100 WBC (0.0-0.2); Platelet Count 232 K/mm3 (150-400); RDW Coefficient Variation 13.8 % (11.7-14.2); RDW Standard Deviation 46.5 fL (35.1-46.3)
[2025-09-26 06:44] LABS: Alanine Aminotransfer (ALT/SGP 261.0 U/L (12-78); Albumin, Blood 2.5 g/dL (3.4-5.0); Albumin/Globulin Ratio 0.7 (0.8-1.8); Anion Gap 7.0 mmol/L (3-11); Aspartate Aminotrans (AST/SGOT 63.0 U/L (12-37); Bilirubin, Total 0.5 mg/dL (0.1-1.0); Blood Urea Nitrogen 12.0 mg/dL (8-24); CO2, Blood 25.0 mmol/L (21-32); Calcium, Blood 9.0 mg/dL (8.5-10.1); Chloride, Blood 112.0 mmol/L (98-108); Creatinine, Blood 1.14 mg/dL (0.60-1.20); Globulin, Blood 3.8 g/dL (2.2-4.0); Glucose, Blood 99.0 mg/dL (70-99); Potassium, Blood 3.8 mmol/L (3.5-5.5); Sodium, Blood 140.0 mmol/L (136-145); Total Protein, Blood 6.3 g/dL (6.4-8.2)
[2025-09-26 07:52] VITALS: BP 191/91
[2025-09-26 11:48] LABS: HEPATITIS A ANTIBODY, IGM Negative (Negative); HEPATITIS C AB CIA INTERP Negative (Negative); HEPATITIS C ANTIBODY CIA INDEX 0.06 IV
[2025-09-26] MEDS ORDERED: CefTRIAXone Sodium 1,000 MG in NS 100 ML IV SCH (12:00)
[2025-09-26] MEDS ORDERED: CefTRIAXone Sodium 1,000 MG in NS 100 ML IV ONE (15:15)
[2025-09-26 15:54] VITALS: BP 139/69
[2025-09-26 19:31] VITALS: BP 143/69
--- NOTE | 2025-09-26 19:40 | NUR ---
END OF SHIFT SUMMARY: A&Ox3-4 THOUGH QUIET, SOFT-SPOKEN AND SLOW TO RESPOND. PLEASANT AND COOPERATIVE WITH CARE. CALLS APPROPRIATELY AND IS ABLE TO ADVOCATE NEEDS EFFECTIVELY. VSS. BREATHING EVEN AND UNLABORED c RA. INCONTINENT OF BOWEL; LBM TODAY. CHRONIC CHEATHAM FOR RETENTION PATENT AND DRAINING YELLOW URINE TO GRAVITY. TOLERATING REGULAR DIET. UP TO RECLINER x2 MEALS TODAY. MEDS WHOLE c FLUIDS. AT BEDSIDE. BED IN LOWEST POSITION, CALL LIGHT WITHIN REACH, ALL NEEDS MET. REPORT TO ONCOMING NURSE. ANTICIPATE DC HOME TOMORROW.
[2025-09-27 03:37] VITALS: BP 141/83
[2025-09-27 06:13] LABS: BASOPHILS ABSOLUTE AUTO 0.10 K/mm3 (0.00-0.23); BASOPHILS PERCENT AUTO 1 % (0-2); EOSINOPHILS ABSOLUTE AUTO 0.76 K/mm3 (0.00-0.68); EOSINOPHILS PERCENT AUTO 8 % (0-6); Hematocrit 35.8 % (37.0-53.0); Hemoglobin 11.5 g/dL (13.5-17.5); IMMATURE GRAN ABSOLUTE AUTO 0.07 K/mm3 (0.00-0.10); IMMATURE GRAN PERCENT AUTO 1 % (0-1); LYMPHOCYTES ABSOLUTE AUTO 2.37 K/mm3 (0.84-5.20); LYMPHOCYTES PERCENT AUTO 26 % (21-46); MONOCYTES ABSOLUTE AUTO 0.76 K/mm3 (0.16-1.47); MONOCYTES PERCENT AUTO 8 % (4-13); Mean Corpuscular HGB Conc 32.1 g/dL (31.5-36.5); Mean Corpuscular Volume 93 fL (80-100); NEUTROPHILS ABSOLUTE AUTO 5.00 K/mm3 (1.96-9.15); NEUTROPHILS PERCENT AUTO 55 % (41-73); NRBC ABSOLUTE 0.00 K/mm3 (0.00-0.02); NRBC Auto 0.0 /100 WBC (0.0-0.2); Platelet Count 264 K/mm3 (150-400); RDW Coefficient Variation 14.2 % (11.7-14.2); RDW Standard Deviation 48.1 fL (35.1-46.3)
--- NOTE | 2025-09-27 06:19 | NUR ---
SHIFT SUMMARY: PT AOX1-2, SOFT SPOKEN AND LIGHT MUMBLE. PT CONFUSED BUT PLEASANT AND COOPERATIVE IN CARE. PT TOLERATING MEDICATIONS WELL, NO ACUTE EVENTS OVERNIGHT. PT IN BED RESTING, BED IN LOWEST POSITION, CALL LIGHT IN REACH. CONTINUING CARE.
[2025-09-27 06:39] LABS: Alanine Aminotransfer (ALT/SGP 264.0 U/L (12-78); Albumin, Blood 2.3 g/dL (3.4-5.0); Albumin/Globulin Ratio 0.6 (0.8-1.8); Anion Gap 7.0 mmol/L (3-11); Aspartate Aminotrans (AST/SGOT 108.0 U/L (12-37); Bilirubin, Total 0.4 mg/dL (0.1-1.0); Blood Urea Nitrogen 14.0 mg/dL (8-24); CO2, Blood 25.0 mmol/L (21-32); Calcium, Blood 9.0 mg/dL (8.5-10.1); Chloride, Blood 113.0 mmol/L (98-108); Creatinine, Blood 1.0 mg/dL (0.60-1.20); Globulin, Blood 3.9 g/dL (2.2-4.0); Glucose, Blood 94.0 mg/dL (70-99); Potassium, Blood 4.0 mmol/L (3.5-5.5); Sodium, Blood 141.0 mmol/L (136-145); Total Protein, Blood 6.2 g/dL (6.4-8.2)
[2025-09-27 07:36] VITALS: BP 153/83
[2025-09-27] MEDS ORDERED: CefTRIAXone Sodium 2,000 MG in NS 100 ML IV SCH (09:00)
--- NOTE | 2025-09-27 10:30 | NUR ---
The patient is sitting on a chair and alert. I provided prayer and encouragement. As I exit the room I hear that he will D/C home today. I celebrate with the patient about this news.
[2025-09-27] MEDS ORDERED: AMOCLA875 PO (11:02)
[2025-09-27] MEDS ORDERED: VISBIOME 112.51 EACH PO (11:02)
--- NOTE | 2025-09-27 11:30 | NUR ---
SHIFT SUMMARY AND DISCHARGE PATIENT ALERT AND INTERACTIVE AT TIMES. PATIENT DISCHARGING BACK TO HOME. PATIENT TRANSPORTED BACK HOME BY GURNEY TRANSPORT. IV DC'D PRIOR TO DISCHARGE. BELONGINGS SENT BACK WITH PATIENT. CONTACTED BY CASE MANAGEMENT RELATED TO DISCHARGE.
--- NOTE | 2025-09-27 15:53 | NUR ---
REVIEWED BOTH PALLIATIVE SERVICES AND HOSPICE SERVICES. PROVIDED HANDOUTS.
== END 2025-09-27 11:41 | disposition home or self-care (01) | DRG 698 ==
LOC: ER 18:58 → MEDS 09-21 02:42 → PCU 09-21 02:42 → MEDS 09-23 17:31
PROVIDERS: Family Medicine; Student in an Organized Health Care Education/Training Program; ADMIT Internal Medicine
PROC: 0T2BX0Z Change Drainage Device in Bladder, External Approach (ICD-10-PCS; principal; 2025-09-21)
PROC: 3E03329 Introduction of Other Anti-infective into Peripheral Vein, Percutaneous Approach (ICD-10-PCS; 2025-09-21)
DX: T83.511A Infection and inflammatory reaction due to indwelling urethral catheter, initial encounter (principal); A41.59 Other Gram-negative sepsis; G93.41 Metabolic encephalopathy; R65.20 Severe sepsis without septic shock; E87.20 Acidosis, unspecified; Y84.6 Urinary catheterization as the cause of abnormal reaction of the patient, or of later complication, without mention of misadventure at the time of the procedure; F01.50 Vascular dementia, unspecified severity, without behavioral disturbance, psychotic disturbance, mood disturbance, and anxiety; G20.A1 Parkinson's disease without dyskinesia, without mention of fluctuations; F02.80 Dementia in other diseases classified elsewhere, unspecified severity, without behavioral disturbance, psychotic disturbance, mood disturbance, and anxiety; N18.2 Chronic kidney disease, stage 2 (mild); I12.9 Hypertensive chronic kidney disease with stage 1 through stage 4 chronic kidney disease, or unspecified chronic kidney disease; Z98.1 Arthrodesis status
CPT/HCPCS: 36415; 51798; 71045; 74176; 74177; 76705; 80048; 80053; 80074; 81001; 83605; 83735; 83880; 85025; 87040; 87077; 87086; 87186; 87637; 93005; 93010; 94762; 99284-25; A9270; J0360; J0696; J2543; J7030; J7050; J7120; Q9967